=== PATIENT | female | born 1980 | race Caucasian/White ===

== ENCOUNTER 2019-01-22 09:05 | Inpatient (IN) | payer OTHER ==
[2019-01-22] MEDS ORDERED: PROMETHAZINE HCL 25 MG/1 ML VIAL IVPUSH PRN (09:56)
[2019-01-22] MEDS ORDERED: BUTORPHANOL TARTRATE 1 MG/ML VIAL IVPB PRN (09:56)
[2019-01-22] MEDS ORDERED: OXYTOCIN 30 UNITS in 0.9% NS 30 UNIT/500 ML INFUS.BAG IVPB SCH (10:00)
[2019-01-22] MEDS: ELECTROLYTE-148 SOLN 1,000 ML IV SCH ×3 (10:15→22:30)
[2019-01-22 10:50] VITALS: BMI 33.3
[2019-01-22 11:12] LABS: BASO % 0.3 % (0-2.0); EOS % 1.1 % (0-4.5); HEMATOCRIT 38.8 % (32.4-45.2); LYMPH % 26.2 % (8-40); MCH 29.9 pg (25.7-33.7); MCHC 33.4 g/dl (32.0-36.0); MEAN CELL VOLUME 89.3 fl (80-96); MEAN PLT VOLUME 11.3 fl (7.5-11.1); MONO % 7.2 % (3.8-10.2); NEUT % 65.2 % (42.8-82.8); PLATELET COUNT 167 K/MM3 (134-434); RBC 4.34 M/mm3 (3.60-5.2); RDW 13.2 % (11.6-15.6); WHITE BLOOD COUNT 9.3 K/mm3 (4.0-10.0)
[2019-01-22 11:25] LABS: INR 0.85 (0.83-1.09)
[2019-01-22 11:28] LABS: ACTIVATED PTT 31.3 SECONDS (25.2-36.5)
--- NOTE | 2019-01-22 11:36 | HP ---
Past Medical History - Admission Chief Complaint: IOL for oligo, BPP 6/8 History of Present Illness: 38yo @ 40.6wks here for IOL for oligo (VIOLETA 3.7) and BPP 6/8 on her postdates monitoring today. No VB/LOF. No ctx. +FM Preg c/b AMA, prior breech presentation with spontaneous conversion at 38wks History Source: Patient Limitations to Obtaining History: Language Barrier - Past Medical History MANAGER GOLF: No: Alzheimer's, CVA, Dementia, Migraine, Multiple Sclerosis, Peripheral Neuropathy, Parkinson's, Seizure, Syncope, TIA, Vertigo, Other Cardiovascular: No: AFIB, Aneurysm, Aortic Insufficiency, Aortic Stenosis, CAD, CHF, Deep Vein Thrombosis, HTN, Hyperlipdemia, [place], Mitral Insufficiency, Mitral Stenosis, Murmur, Pulmonary Hypertension, Other Pulmonary: No: Asthma, Bronchitis, Cancer, COPD, O2 Dependent, Pneumonia, Previously Intubated, Pulmonary Embolus, Pulmonary Fibrosis, Sleep Apnea, Other Gastrointestinal: No: Ascites, Cancer, Constipation, Crohn's Disease, Diverticulitis, Diverticulosis, Esophageal Varices, Gastritis, GERD, GI Bleed, Hemorrhoids, Hiatal Hernia, Inflamatory Bowel Disease, Irritable Bowel Disease, Pancreatitis, Peptic Ulcer Disease, Ulcerative Colitis, Other Hepatobiliary: No: Cirrhosis, Cholelithiasis, Cholecystitis, Choledocholithiasis , Hepatitis A, Hepatitis B, Hepatitis C, Other Renal/: No: Renal Failure, Renal Inusuff, BPH, Cancer, Hematuria, Hemodialysis , Neurogenic Bladder, Renal Calculi, UTI, Other Reproductive: No: Ectopic , Endometriosis, Fibroids, PID, Polycystic Ovary Syndrome, Postmenopausal, Other ...: 2 ...Para: 0 ...Term: 0 ...: 0 ...Spon : 1 ...Induced : 0 ...Multiple Gestation: 0 ...LMP: 04/11/18 ... Weeks Gestation by Dates: 40.6 ...EDC by Dates: 01/16/19 ...EDC by Sono: 01/16/19 Heme/Onc: Yes: Anemia Infectious Disease: No: AIDS, C-Diff, Herpes Zoster, HIV, MRSA, STD's, Tuberculosis, VREF, Other Psych: No: Addictions, Anxiety, Bipolar, Depression, Panic, Psychosis, Schizophrenia, Other Musculoskeletal: No: Bursitis, Chronic low back pain, Hemiparesis, Hemiplegia, Osteoarthritis, Paraplegia, Other Rheumatology: No: Fibromyalgia, Gout, Lupus, Rheumatoid Arthritis, Sarcoidosis, Vasculitis, Other ENT: No: Allergic Rhinitis, Sinusitis, Other Endocrine: No: [place]'s Disease, Br[place]'s Disease, Diabetes Insipidus, Diabetes Mellitus, Hyperparathyroidism, Hyperthyroidism, Hypothyroidism, Osteopenia, SIADH, Other - Past Surgical History Past Surgical History: Yes: None Hx Myomectomy: No Hx Transabdominal Cerclage: No - Smoking History Smoking history: Never smoked Have you smoked in the past 12 months: No - Alcohol/Substance Use Hx Alcohol Use: No - Social History Usual Living Arrangement: Yes: Alone ADL: Independent History of Recent Travel: No Home Medications - Allergies Allergies/Adverse Reactions: Allergies Allergy/AdvReac Type Severity Reaction Status Date / Time No Known Allergies Allergy Verified 01/22/19 10:15 - Home Medications Home Medications: Ambulatory Orders Vits96/Iron Fum/Folic [ Tablet] 1 each PO DAILY 01/22/19 Physical Exam - Maternity Vital Signs: Vital Signs Temperature 97.9 F 01/22/19 10:00 Pulse Rate 52 L 01/22/19 10:00 Respiratory Rate 18 01/22/19 10:00 Blood Pressure 134/82 01/22/19 10:00 O2 Sat by Pulse Oximetry (%) Constitutional: Yes: Well Nourished, No Distress, Calm Eyes: Yes: WNL, Conjunctiva Clear, EOM Intact HENT: Yes: WNL, Atraumatic, Normocephalic Neck: Yes: WNL, Supple, Trachea Midline Cardiovascular: Yes: WNL, Regular Rate and Rhythm Breast(s): Yes: WNL - Abdominal Exam/OB Number of Fetuses: Single Presentation: Vertex Contractions: No Heart Rate Location: LUQ Category: I Accelerations: None Decelerations: None - Vaginal Exam/OB Vaginal Bleediing: No Dilatation (cm): 1 Effacement (%): 0 Presentation: Vertex/Position Station: -3 - Physical Exam Edema: No - Labs Lab Results: CBC, BMP 01/22/19 10:19 Assessment/Plan 38yo @ 40.6wks here for IOL for oligo/BPP 12/09 Admit to L&D Cat I tracing Stephens bulb, pitocin GBS neg; AROM prn Anticipate JEFFREY Case MD
[2019-01-22 11:38] LABS: BLOOD UREA NITROGEN 9.1 mg/dL (7-18); CREATININE 0.5 mg/dL (0.55-1.3)
[2019-01-22 11:39] LABS: CALCIUM 8.5 mg/dL (8.5-10.1); POTASSIUM 3.7 mmol/L (3.5-5.1)
--- NOTE | 2019-01-22 12:06 | PN ---
Progress Note (short form) - Note Progress Note: Stephens bulb placed. 30cc SVE long/1-2/-3 M. MD Manpreet
--- NOTE | 2019-01-22 14:07 | PN ---
Progress Note, Labor Vaginal Exam #2 Labor Exam Date: 01/22/19 Labor Exam Time: 14:06 Heart Rate (range): Cat I Dilatation: 4 Effacement (%): 50 Amniotic Membrane Status: Ruptured Presentation: Vertex/Position Station: -3 Remarks: Stephens bulb out AROM, clear Cont pitocin Cat I Anticipate JEFFREY Case MD
[2019-01-22] MEDS ORDERED: BUTORPHANOL TARTRATE 2 MG/ML VIAL ONE (18:18)
[2019-01-22] MEDS ORDERED: PROMETHAZINE HCL 25 MG/1 ML VIAL ONE (18:18)
--- NOTE | 2019-01-22 18:21 | PN ---
Ante-Partal Exam - Subjective Subjective: Patient evaluated for pain Vital Signs: Vital Signs Temperature 98.3 F 01/22/19 18:00 Pulse Rate 52 L 01/22/19 18:00 Respiratory Rate 18 01/22/19 18:00 Blood Pressure 120/71 01/22/19 18:00 O2 Sat by Pulse Oximetry (%) Bleeding: No Headache: No Visual changes: No Right upper quadrant pain: No - Contractions Contractions: Yes Regularity: Regular Intensity: Mild/Mod Monitor Mode: External - Exam during Labor Heart Rate: 150 (reactive) Variability: Moderate Category: I Monitor Accelerations: Present Monitor Decelerations: None Exam: Vaginal Dilatation (cm): 4 Effacement (%): 50 Amniotic Fluid: Clear Presentation: Vertex Station: -3 - Assessment/Plan Assessment/Plan: 38 y/o @ 40.6wks, IOL due to oligohydramnios, reassuring status, desiring IV pain control, pitocin @ 2mU/min. -Increase pit -IV pain control -Re-evaluate appropriately.
--- NOTE | 2019-01-22 20:47 | PN ---
Ante-Partal Exam - Subjective Subjective: Patient complaints of pain Vital Signs: Vital Signs Temperature 98.3 F 01/22/19 18:00 Pulse Rate 52 L 01/22/19 18:00 Respiratory Rate 18 01/22/19 18:00 Blood Pressure 120/71 01/22/19 18:00 O2 Sat by Pulse Oximetry (%) Bleeding: No Headache: No Visual changes: No Right upper quadrant pain: No - Contractions Contractions: Yes Regularity: Regular Intensity: Moderate Monitor Mode: External - Exam during Labor Heart Rate: 150 (reactive) Variability: Moderate Category: I Monitor Accelerations: Present Monitor Decelerations: None Exam: Vaginal Dilatation (cm): 5 Effacement (%): 50 Amniotic Membrane Status: Ruptured Amniotic Fluid: Clear Presentation: Vertex (OP) Station: -3 - Assessment/Plan Assessment/Plan: 38y/o @ 40.6wks, AROM, IOL due to oligo, pitocin augmentation, requesting epidural, regular contractions -Epidural -Continue pitocin -Re-evaluate
[2019-01-22] MEDS ORDERED: FENTANYL/BUPIVACAINE/NS/PF - PCEA - 50 ML DISP.SYRIN EP ONE (21:07)
[2019-01-22] MEDS ORDERED: LIDO 2%/EPI 1:200000 PRESRVFRE (20 ML SDVIAL) ONE (21:44)
[2019-01-22] MEDS ORDERED: NALOXONE HCL 0.4 MG/ML VIAL IVPUSH PRN (22:05)
[2019-01-22] MEDS ORDERED: FENTANYL/BUPIVACAINE/NS/PF - PCEA - 50 ML DISP.SYRIN EP SCH (22:15)
--- NOTE | 2019-01-23 00:54 | PN ---
Ante-Partal Exam - Subjective Subjective: Patient evaluated for post epidural check Vital Signs: Vital Signs Temperature 99.2 F 01/23/19 00:00 Pulse Rate 82 01/23/19 00:30 Respiratory Rate 17 01/23/19 00:30 Blood Pressure 117/82 01/23/19 00:30 O2 Sat by Pulse Oximetry (%) 97 01/23/19 00:30 Bleeding: No Headache: No Visual changes: No Right upper quadrant pain: No - Contractions Contractions: Yes Regularity: Regular Intensity: Mild Monitor Mode: External - Exam during Labor Heart Rate: 150 (minimal to moderate variability) Variability: Minimal Monitor Accelerations: Absent Monitor Decelerations: Early Exam: Vaginal Dilatation (cm): 6 Effacement (%): 60 Amniotic Membrane Status: Ruptured Amniotic Fluid: Clear Presentation: Vertex (asynclitic) Station: -3 (internal digital rotation attempted) - Assessment/Plan Assessment/Plan: 38 y/o P1 @ 41.0wks, induction secondary to oligo, pitocin at 6mU/min, S/P AROM Continue pitocin augmentation
[2019-01-23] MEDS ORDERED: FENTANYL/BUPIVACAINE/NS/PF - PCEA - 50 ML DISP.SYRIN EP ONE (02:04)
[2019-01-23] MEDS ORDERED: CEFAZOLIN 2 GM/D5W 2 GM/50 ML ML IVPB ONE (03:19)
[2019-01-23] MEDS ORDERED: CITRIC ACID/SODIUM CITRATE 30 ML UNIT-DOSE CUP PO ONE (03:19)
[2019-01-23] MEDS ORDERED: LIDO 2%/EPI 1:200000 PRESRVFRE (20 ML SDVIAL) ONE (03:26)
--- NOTE | 2019-01-23 03:29 | PN ---
Ante-Partal Exam - Subjective Subjective: Patient evaluated for progression of labor Vital Signs: Vital Signs Temperature 99.2 F 01/23/19 02:00 Pulse Rate 87 01/23/19 02:30 Respiratory Rate 19 01/23/19 02:30 Blood Pressure 129/79 01/23/19 02:30 O2 Sat by Pulse Oximetry (%) 96 01/23/19 02:30 Bleeding: No Headache: No Visual changes: No Right upper quadrant pain: No - Contractions Contractions: Yes Regularity: Regular Intensity: Mod/Strong Monitor Mode: External - Exam during Labor Heart Rate: 160 (moderate) Variability: Minimal Category: II Monitor Accelerations: Absent Monitor Decelerations: None Exam: Vaginal Dilatation (cm): 6 Effacement (%): 60 Amniotic Membrane Status: Ruptured Presentation: Vertex Station: -3 (OP) - Assessment/Plan Assessment/Plan: 38 Y/O P1 @ 41.0wks, failed induction of labor, FHT cat II, adequate contractions without any cervical change, BTL consent signed but less than 30 days ago. Patient extensively counseled and agrees with CD. Riska nd complications of procedure explained -Informed consent -proceed with CD
[2019-01-23] MEDS ORDERED: OXYTOCIN 10 UNITS/ML VIAL ONE (04:00)
[2019-01-23] MEDS ORDERED: KETOROLAC TROMETHAMINE 30 MG/1 ML VIAL ONE (04:04)
[2019-01-23] MEDS ORDERED: ceFAZolin SODIUM 1 GM VIAL ONE (04:05)
[2019-01-23] MEDS ORDERED: ePHEDrine SULFATE 50 MG/1 ML AMPULE ONE (04:07)
[2019-01-23] MEDS ORDERED: DEXAMETHASONE SOD PHOSPHATE 4 MG/1 ML VIAL ONE (04:30)
--- NOTE | 2019-01-23 05:08 | OP ---
Operative Note - Note: Operative Date: 01/23/19 (uncomplicated # [id number]) Pre-Operative Diagnosis: failed induction Operation: PLTCS Findings: see dictation Implants: none Post-Operative Diagnosis: Same as Pre-op Surgeon: Quang Yeboah Anesthesia: Spinal Specimens Removed: placenta Estimated Blood Loss (mls): 700 Fluid Volume Replaced (mls): 1,700 Operative Report Dictated: Yes
[2019-01-23] MEDS ORDERED: oxyCODONE HCL 5 MG TABLET PO PRN (05:14)
[2019-01-23] MEDS ORDERED: OXYTOCIN 20 UNITS in 0.9% NS 20 UNIT/1,000 ML INFUS.BAG IV SCH (05:15)
[2019-01-23] MEDS ORDERED: OXYTOCIN 20 UNITS in 0.9% NS 20 UNIT/1,000 ML INFUS.BAG IV ONE (06:15)
--- NOTE | 2019-01-23 09:19 | PN ---
Progress Note, Physician Chief Complaint: s/p c section under spinal anesthesia History of Present Illness: post op day one with duramorph for post op pain control - Current Medication List Current Medications: Active Medications Acetaminophen (Tylenol -) 650 mg PO Q4H PRN PRN Reason: PAIN LEVEL 4 - 6 Bisacodyl (Dulcolax Suppository -) 10 mg RC PRN PRN PRN Reason: CONSTIPATION Diphtheria/Tetanus/Acell Pertussis (Boostrix -) 0.5 ml IM .ONCE ONE Stop: 01/24/19 10:01 Oxytocin/Sodium Chloride (Normal Saline+20 Units Oxytocin -) 20 unit in 1,000 mls @ 125 mls/hr IV ASDIR PEGGY Last Admin: 01/23/19 06:15 Dose: 125 mls/hr Ibuprofen (Motrin -) 600 mg PO Q4H PRN PRN Reason: PAIN LEVEL 1 - 3 Oxycodone HCl (Roxicodone -) 5 mg PO Q4H PRN PRN Reason: PAIN LEVEL 6-10 Simethicone (Mylicon -) 80 mg PO Q4H PRN PRN Reason: GAS - Objective Vital Signs: Vital Signs Temperature 99.1 F 01/23/19 08:00 Pulse Rate 73 01/23/19 08:00 Respiratory Rate 20 01/23/19 09:00 Blood Pressure 134/73 01/23/19 08:00 O2 Sat by Pulse Oximetry (%) 98 01/23/19 08:00 Constitutional: Yes: Well Nourished Cardiovascular: Yes: WNL Respiratory: Yes: WNL Gastrointestinal: Yes: WNL Labs: CBC, BMP 01/22/19 10:19 01/22/19 10:19 INR, PTT INR 0.85 (0.83-1.09) 01/22/19 10:19 Assessment/Plan No adverse anesthetic complications, pain controlled, no further intervention from the department of anesthesia
--- NOTE | 2019-01-23 10:56 | OP ---
DATE OF OPERATION: 01/23/2019 DICTATING/ATTENDING: Yumiko Broussard MD PREOPERATIVE DIAGNOSIS: A 38-year-old 2 para 1 at 41 weeks of gestation , induction of labor secondary to oligohydramnios, failing induction of labor, arrest of dilatation, heart rate category 2. POSTOPERATIVE DIAGNOSIS: A 38-year-old 2 para 1 at 41 weeks of gestation, induction of labor secondary to oligohydramnios, failing induction of labor, arrest of dilatation, heart rate category 2. PROCEDURE: Primary low transverse section. SURGEON: Yumiko Broussard MD MARKETING ADMIN: GANGA Iqbal ANESTHESIA: Spinal. ESTIMATED BLOOD LOSS: 700. INTRAVENOUS FLUIDS: Crystalloid, 1700. URINE: Clear. COMPLICATIONS: None. FINDINGS: Normal anterior abdominal wall anatomy with moderate amount of subcutaneous tissue. Intraoperative findings were consistent with normal anatomy. Lower uterine segment was slightly effaced, in cephalic presentation and direct OP. No nuchal cord. Live viable female . Uterus, bilateral tubes and ovaries were consistent with normal anatomy. Rectus muscles-fascial interface, bladder dome were intact and dry. DESCRIPTION OF PROCEDURE: The patient was taken to the operating room where spinal anesthesia was found to be adequate. She was then prepped and draped in the normal sterile fashion. A urinary Stephens catheter was placed atraumatically. Appropriate time-out took place. A Pfannenstiel skin incision was made with the scalpel and carried to the underlying fascia with the Bovie. The fascia was incised in the midline and incision extended laterally with sharp dissection. The underlying rectus muscles were dissected off sharply and bluntly. Rectus muscles were elevated with Allis and incised and in the midline with sharp dissection. Upon entry into the peritoneal cavity revealed no visceral adhesions at the point of entry. The peritoneal excision was extended laterally with blunt and sharp dissection. Bladder blade was placed, and the lower uterine segment was noted to be slightly effaced. Lower uterine segment transverse incision was made with the scalpel, extended laterally with blunt dissection. The was delivered through a surgical incision with mild fundal pressure. No nuchal cord present. Shoulders and rest of the body were delivered without difficulty. Umbilical cord was clamped after delay, and was handed off to the waiting NICU staff. Samples for gases and blood were obtained from the cord. The placenta was delivered manually and intact. The uterus was exteriorized through the surgical incision and the intrauterine cavity was cleared of all clots and debris. The lower uterine segment incision was reapproximated with 0 Vicryl running locked sutures. Excellent structural reapproximation and hemostasis was achieved. Uterus was internalized with the pelvic cavity and secondary inspection of the incision revealed excellent hemostasis. Gutters were cleared of all clots and debris. Rectus muscles-fascial interface, and bladder dome were reexamined and noted as previously mentioned. The fascial incision was reapproximated with 0 Vicryl running locked suture. Excellent structural reapproximation achieved and confirmed by digital palpation by the surgeon. Subcutaneous tissues were copiously irrigated. Bleeders neutralized with Bovie cautery. Subcutaneous tissues were reapproximated with 2 -0 chromic suture. Skin incision was reapproximated with 3-0 subcuticular Vicryl suture. Excellent hemostasis and reapproximation achieved. Patient tolerated the procedure well. Instrument count was reported as correct x2 by the surgical staff. YUMIKO BROUSSARD MD [id number] MTDD
[2019-01-23] MEDS: SIMETHICONE 80 MG TAB.CHEW (FP) PO PRN (20:41)
[2019-01-23] MEDS: ACETAMINOPHEN 325 MG TABLET (FP) PO PRN (20:41)
[2019-01-23] MEDS: IBUPROFEN 600 MG TABLET (FP) PO PRN (20:41)
[2019-01-24] MEDS: IBUPROFEN 600 MG TABLET (FP) PO PRN ×5 (00:42→19:56)
[2019-01-24] MEDS: SIMETHICONE 80 MG TAB.CHEW (FP) PO PRN ×5 (00:42→19:56)
[2019-01-24] MEDS: ACETAMINOPHEN 325 MG TABLET (FP) PO PRN ×5 (00:43→19:56)
[2019-01-24] MEDS ORDERED: BISACODYL 10 MG SUPP.RECT RC PRN (05:11)
[2019-01-24 09:45] LABS: BASO % 0.2 % (0-2.0); EOS % 0.6 % (0-4.5); HEMATOCRIT 27.4 % (32.4-45.2); HEMOGLOBIN 9.3 GM/dL (10.7-15.3); LYMPH % 20.4 % (8-40); MCH 30.1 pg (25.7-33.7); MEAN CELL VOLUME 88.4 fl (80-96); MEAN PLT VOLUME 11.1 fl (7.5-11.1); MONO % 5.6 % (3.8-10.2); NEUT % 73.2 % (42.8-82.8); PLATELET COUNT 135 K/MM3 (134-434); RDW 13.5 % (11.6-15.6); WHITE BLOOD COUNT 13.8 K/mm3 (4.0-10.0)
[2019-01-24] MEDS ORDERED: DIPHTH,PERTUSS(ACELL),TET 0.5 ML DISP.SYRIN IM ONE (10:00)
--- NOTE | 2019-01-24 14:18 | PN ---
Post Progress Note - Subjective Subjective: Ambulating, breast feeding, lochia decreased, tolerating PO, voiding Post Day: 1 Type of Delivery: Primary C/S Vital Signs: Vital Signs Temperature 98 F 01/24/19 07:20 Pulse Rate 63 01/24/19 07:20 Respiratory Rate 18 01/24/19 07:20 Blood Pressure 111/72 01/24/19 07:20 O2 Sat by Pulse Oximetry (%) 98 01/23/19 08:00 Breast Exam: Yes: Other (deferred) Uterus: Yes: Fundus Firm Incision: Yes: Sutures intact Abdomen/GI: Yes: Abdomen soft Lochia, amount: Small Extremities: Yes: Calves non-tender Activity: Ambulating - Labs Labs: CBC WBC 13.8 K/mm3 (4.0-10.0) H 01/24/19 07:41 RBC 3.10 M/mm3 (3.60-5.2) L 01/24/19 07:41 Hgb 9.3 GM/dL (10.7-15.3) L 01/24/19 07:41 Hct 27.4 % (32.4-45.2) L D 01/24/19 07:41 MCV 88.4 fl (80-96) 01/24/19 07:41 MCH 30.1 pg (25.7-33.7) 01/24/19 07:41 MCHC 34.0 g/dl (32.0-36.0) 01/24/19 07:41 RDW 13.5 % (11.6-15.6) 01/24/19 07:41 Plt Count 135 K/MM3 (134-434) 01/24/19 07:41 MPV 11.1 fl (7.5-11.1) 01/24/19 07:41 Absolute Neuts (auto) 10.1 K/mm3 (1.5-8.0) H 01/24/19 07:41 Neutrophils % 73.2 % (42.8-82.8) 01/24/19 07:41 Lymphocytes % 20.4 % (8-40) D 01/24/19 07:41 Monocytes % 5.6 % (3.8-10.2) 01/24/19 07:41 Eosinophils % 0.6 % (0-4.5) 01/24/19 07:41 Basophils % 0.2 % (0-2.0) 01/24/19 07:41 Nucleated RBC % 0 % (0-0) 01/24/19 07:41 Problem List - Problems (1) delivery delivered Code(s): O82 - ENCOUNTER FOR DELIVERY WITHOUT INDICATION Assessment/Plan POD # 1 in stable condition, PP/post-op precautions discussed -Encouraged ambulation and breast feeding -Continue PP/post-op care
[2019-01-25] MEDS: ACETAMINOPHEN 325 MG TABLET (FP) PO PRN ×4 (04:06→20:50)
[2019-01-25] MEDS: IBUPROFEN 600 MG TABLET (FP) PO PRN ×4 (04:06→20:50)
[2019-01-25] MEDS: SIMETHICONE 80 MG TAB.CHEW (FP) PO PRN ×4 (04:06→20:50)
--- NOTE | 2019-01-25 06:03 | PN ---
Post Progress Note - Subjective Subjective: Pain controlled. Lochia decreasing. No fevers/chills. + Post Day: 2 Type of Delivery: Primary C/S Vital Signs: Vital Signs Temperature 97.8 F 01/24/19 22:00 Pulse Rate 81 01/24/19 22:00 Respiratory Rate 18 01/24/19 22:00 Blood Pressure 136/86 01/24/19 22:00 O2 Sat by Pulse Oximetry (%) 98 01/23/19 08:00 Uterus: Yes: Fundus below umbilicus Incision: Yes: Dressing dry and intact, Sutures intact Abdomen/GI: Yes: Abdomen soft, Passing flatus, Tolerating PO Lochia: Yes: Rubra Lochia, amount: Small Extremities: Yes: Calves non-tender Activity: Ambulating - Labs Labs: CBC WBC 13.8 K/mm3 (4.0-10.0) H 01/24/19 07:41 RBC 3.10 M/mm3 (3.60-5.2) L 01/24/19 07:41 Hgb 9.3 GM/dL (10.7-15.3) L 01/24/19 07:41 Hct 27.4 % (32.4-45.2) L D 01/24/19 07:41 MCV 88.4 fl (80-96) 01/24/19 07:41 MCH 30.1 pg (25.7-33.7) 01/24/19 07:41 MCHC 34.0 g/dl (32.0-36.0) 01/24/19 07:41 RDW 13.5 % (11.6-15.6) 01/24/19 07:41 Plt Count 135 K/MM3 (134-434) 01/24/19 07:41 MPV 11.1 fl (7.5-11.1) 01/24/19 07:41 Absolute Neuts (auto) 10.1 K/mm3 (1.5-8.0) H 01/24/19 07:41 Neutrophils % 73.2 % (42.8-82.8) 01/24/19 07:41 Lymphocytes % 20.4 % (8-40) D 01/24/19 07:41 Monocytes % 5.6 % (3.8-10.2) 01/24/19 07:41 Eosinophils % 0.6 % (0-4.5) 01/24/19 07:41 Basophils % 0.2 % (0-2.0) 01/24/19 07:41 Nucleated RBC % 0 % (0-0) 01/24/19 07:41 Assessment/Plan 38yo s/p PLTCS, POD#2 Routine PP care PO pain control OOB, ambulate D/C to home tomorrow Daniel Case MD
[2019-01-26] MEDS: SIMETHICONE 80 MG TAB.CHEW (FP) PO PRN ×3 (00:30→10:06)
[2019-01-26] MEDS: IBUPROFEN 600 MG TABLET (FP) PO PRN ×3 (00:30→10:04)
[2019-01-26] MEDS: ACETAMINOPHEN 325 MG TABLET (FP) PO PRN ×3 (00:30→10:05)
--- NOTE | 2019-01-26 07:13 | DS ---
Physical Exam-ANIMAL ATTENDANTS AND TRAINERS Vital Signs: Vital Signs Temperature 97.6 F 01/25/19 21:13 Pulse Rate 64 01/25/19 21:13 Respiratory Rate 20 01/25/19 21:13 Blood Pressure 126/84 01/25/19 21:13 O2 Sat by Pulse Oximetry (%) 98 01/23/19 08:00 Constitutional: Yes: Well Nourished, No Distress, Calm Eyes: Yes: WNL, Conjunctiva Clear, EOM Intact HENT: Yes: WNL, Atraumatic, Normocephalic Neck: Yes: WNL, Supple, Trachea Midline Cardiovascular: Yes: WNL, Regular Rate and Rhythm Respiratory: Yes: WNL, Regular, CTA Bilaterally Gastrointestinal: Yes: WNL ...Rectal Exam: Yes: WNL Renal/: Yes: WNL ....Post : Yes: Uterus firm, Uterus non-tender, Slight lochia rubra Breast(s): Yes: WNL Musculoskeletal: Yes: WNL Extremities: Yes: WNL Edema: Yes Edema: LLE: Trace, RLE: Trace Integumentary: Yes: WNL Neurological: Yes: WNL, Alert, Oriented ...Motor Strength: WNL Psychiatric: Yes: WNL, Alert, Oriented Labs: CBC, BMP 01/24/19 07:41 01/22/19 10:19 Delivery - Delivery Section: Repeat, Low Flap Transverse Type of Anesthesia: Epidural Episiotomy/Laceration: None EBL (cc): 700 Delivery, Single - Stages of Labor Date 1st Stage Initiatied: 01/22/19 Time 1st Stage Initiated: 11:00 Date of Delivery: 01/23/19 Time of Delivery: 04:18 Time Placenta Delivered: 04:19 Placenta: Yes: Expressed - Condition of Infant Hazardous Substances Scientist/Foot Cutter Present: Yes Name: Krys Botello Gender: Female Weight: 6 lb 12 oz Position: OP Total Hours ROM (Hrs/Mins): 14 hours 26 minutes - 1 Minute Total Score: 9 5 Minutes Total Score: 9 - Dema Feeding Plan Initial Plan: Elected not to breastfeed exclusively throughout hospitalization Discharge Summary Reason For Visit: INDUCTION OF LABOR Current Active Problems delivery delivered (Acute) Procedures: Principal: no complication Hospital Course: repeat LST c/s Condition: Stable - Instructions Diet, Activity, Other Instructions: Regular Diet Follow up in 4-6 weeks for a visit Referrals: Marta Case MD [Staff Physician] - Disposition: HOME - Home Medications Comprehensive Discharge Medication List: Ambulatory Orders Vits96/Iron Fum/Folic [ Tablet] 1 each PO DAILY 01/22/19 Ibuprofen 600 mg PO Q6H PRN #30 tablet MDD 5 01/23/19 Oxycodone HCl/Acetaminophen [Percocet 5-325 mg Tablet -] 1 tab PO Q6H PRN #20 tab MDD 5 01/23/19
[2019-01-26 08:04] LABS: BASO % 0.2 % (0-2.0); HEMATOCRIT 26.8 % (32.4-45.2); HEMOGLOBIN 9.2 GM/dL (10.7-15.3); LYMPH % 26.8 % (8-40); MCH 30.3 pg (25.7-33.7); MCHC 34.3 g/dl (32.0-36.0); MEAN CELL VOLUME 88.4 fl (80-96); MEAN PLT VOLUME 9.8 fl (7.5-11.1); MONO % 6.6 % (3.8-10.2); NEUT % 62.4 % (42.8-82.8); PLATELET COUNT 179 K/MM3 (134-434); RBC 3.03 M/mm3 (3.60-5.2); RDW 13.5 % (11.6-15.6); WHITE BLOOD COUNT 7.4 K/mm3 (4.0-10.0)
[2019-01-26 12:00] VITALS: BP 130/77; PULSE 65; TEMP 98
--- NOTE | 2019-01-31 19:27 | PATH ---
Surgical Pathology Report Patient Name: ZENAIDA MURRAY Med. Rec. #: [id number] /Age/Gender: 1980 (Age: 38) / F Account: [id number] Location: [facility] OBS/STRIP CATCHER Taken: 01/23/2019 Received: 01/23/2019 Reported: 01/31/2019 Physicians: Marta Case Specimen(s) Received PLACENTA Clinical History , , AMA, oligohydramnios, post dates Final Diagnosis PLACENTA, SECTION: 327 G THIRD TRIMESTER PLACENTA WITH TRIVASCULAR UMBILICAL CORD AND UNREMARKABLE PLACENTAL MEMBRANES. Electronically Signed Zenaida Weiner M.D. Gross Description The specimen is received fresh labeled placenta and is a 327 gram, 13.0 x 13.0 x 2.9 cm. placenta with attached membranes and umbilical cord. The attached membranes are frank, translucent with focal opacities and insert marginally. The umbilical cord measures 10 cm. in length and averages 1 cm. in diameter. The cord inserts eccentrically, 3.3 cm. to the nearest margin. No true knots or strictures are identified. Cut surface of the umbilical cord reveals 3 vessels. The surface is lópez-blue with minimal fibrin deposition and appropriate caliber vessels. The maternal surface is red-brown and intact. Sectioning reveals red-brown, spongy parenchyma. No lesions are identified. Real Estate Administrator sections are submitted in three cassettes as follows: 1- membrane rolls and umbilical cord; 2-3- full thickness sections of placenta. /01/26/2019 saudi01/26/2019
== END 2019-01-26 14:50 | disposition home or self-care (01) | DRG 540 ==
LOC: JDEL 09:05 → JLDR 09:45 → J3W 01-23 08:00
PROVIDERS: ADMIT Obstetrics & Gynecology; ATTEND Obstetrics & Gynecology
PROC: 10D00Z1 Extraction of Products of Conception, Low, Open Approach (ICD-10-PCS; principal; 2019-01-23)
DX: O48.0 Post-term pregnancy (principal); O41.03X0 Oligohydramnios, third trimester, not applicable or unspecified; O62.0 Primary inadequate contractions; O77.8 Labor and delivery complicated by other evidence of fetal stress; O61.8 Other failed induction of labor; Z3A.41 41 weeks gestation of pregnancy; Z37.0 Single live birth
CPT/HCPCS: 36415; 36600; 80048; 82803; 85025; 85610; 85730; 86593; 86850; 86900; 86901; 87389; 88307-TC

== ENCOUNTER 2022-10-29 18:23 | Emergency (ER) | payer OTHER ==
[2022-10-29 18:33] VITALS: BMI 32.9
[2022-10-29] MEDS ORDERED: ACETAMINOPHEN 1000 MG/100 ML BAG IVPB ONE (19:20)
[2022-10-29] MEDS ORDERED: SODIUM CHLORIDE 0.9% 500 ML INFUS.BAG IV ONE (19:20)
[2022-10-29] MEDS ORDERED: ONDANSETRON 4 MG/2 ML VIAL IVPUSH ONE ×2 (19:21→22:55)
[2022-10-29] MEDS ORDERED: ONDANSETRON 4 MG/2 ML VIAL ONE ×2 (19:47→23:28)
[2022-10-29] MEDS ORDERED: ACETAMINOPHEN INJECTION 100 ML IVPB ONE (19:47)
[2022-10-29 20:51] LABS: BASO % 0.4 % (0-2.0); EOS % 1.6 % (0-4.5); HEMATOCRIT 36.7 % (32.4-45.2); HEMOGLOBIN 12.5 GM/dL (10.7-15.3); LYMPH % 18.8 % (8-40); MCHC 34.1 g/dl (32.0-36.0); MEAN CELL VOLUME 84.9 fl (80-96); MEAN PLT VOLUME 9.5 fl (7.5-11.1); NEUT % 74.2 % (42.8-82.8); PLATELET COUNT 232 10^3/uL (134-434); RBC 4.33 M/mm3 (3.60-5.2); RDW 13.9 % (11.6-15.6); WHITE BLOOD COUNT 11.8 K/mm3 (4.0-10.0)
[2022-10-29 20:58] LABS: INR 1.03 (0.83-1.09); PROTHROMBIN TIME (PATIENT) 11.9 SEC (9.7-13.0)
[2022-10-29 21:01] LABS: ACTIVATED PTT 29.9 SECONDS (25.2-36.5)
[2022-10-29 21:06] LABS: ALBUMIN 3.8 g/dl (3.4-5.0); BLOOD UREA NITROGEN 14.4 mg/dL (7-18); CALCIUM 8.5 mg/dL (8.5-10.1); MAGNESIUM 1.8 mg/dL (1.8-2.4)
[2022-10-29 21:09] LABS: CREATININE 0.7 mg/dL (0.55-1.3)
[2022-10-29 21:11] LABS: BILIRUBIN,TOTAL 0.4 mg/dL (0.2-1); TOT PROT 7.6 g/dl (6.4-8.2)
[2022-10-29 21:16] LABS: EPI CELLS >36 /uL (0-25.1); HYALINE CASTS 5 /uL (0-3.1); URINE APPEARANCE CLOUDY; URINE BACTERIA 2031 /uL (0-1359); URINE BILIRUBIN NEGATIVE (NEGATIVE); URINE COLOR YELLOW; URINE GLUCOSE (UA) NEGATIVE (NEGATIVE); URINE KETONE 2+ (NEGATIVE); URINE LEUK ESTERASE 2+ (NEGATIVE); URINE NITRITE NEGATIVE (NEGATIVE); URINE PROTEIN TRACE (NEGATIVE); URINE WBC 141 /uL (0-25.8)
[2022-10-29 22:41] LABS: URINE RBC 113.2 /uL (0-23.9)
[2022-10-29] MEDS ORDERED: FAMOTIDINE 20 MG/50 ML IVPB 20 MG/50 ML MG IVPB ONE ×2 (22:55→23:28)
[2022-10-29] MEDS ORDERED: MAG HYDROX/AL HYDROX/SIMETH 30 ML UNIT-DOSE CUP PO ONE (22:55)
[2022-10-29] MEDS ORDERED: MAG HYDROX/AL HYDROX/SIMETH 30 ML UNIT-DOSE CUP ONE (23:28)
[2022-10-30] MEDS ORDERED: LACTULOSE 20 GM/30 ML UDC (FOR ORAL USE ONLY) ONE (01:33)
[2022-10-30] MEDS ORDERED: WATER IVPB ONE (02:17)
[2022-10-30] MEDS ORDERED: DEXTROSE 5% IVPB ONE (02:17)
[2022-10-30] MEDS ORDERED: CEFTRIAXONE IVPB ONE (02:17)
[2022-10-30] MEDS ORDERED: CEFTRIAXONE 2 GM in DEXTROSE 5%-WATER 100 ML IVPB ONE (02:45)
[2022-10-30 02:47] VITALS: BP 115/73; PULSE 68; RESP 16; TEMP 98.6
[2022-10-30] MEDS ORDERED: CEFTRIAXONE 2 GM/100 ML BAG IVPB ONE (03:48)
== END 2022-10-30 06:04 | disposition left against medical advice (07) ==
LOC: JER 18:23
PROC: 3E033GC Introduction of Other Therapeutic Substance into Peripheral Vein, Percutaneous Approach (ICD-10-PCS; principal; 2022-10-29)
DX: K80.20 Calculus of gallbladder without cholecystitis without obstruction (principal); N30.90 Cystitis, unspecified without hematuria
CPT/HCPCS: 0241U-QW; 36415; 74177-TC; 76705-TC; 80053; 81003; 83690; 83735; 84703; 85025; 85610; 85730; 86850; 86900; 86901; 87086; 99285-25; Q9967

== ENCOUNTER 2023-02-04 01:23 | Inpatient (IN) | payer OTHER ==
[2023-02-04 01:42] VITALS: BMI 30.5
[2023-02-04] MEDS ORDERED: ONDANSETRON 4 MG/2 ML VIAL IVPUSH ONE (01:59)
[2023-02-04] MEDS ORDERED: SODIUM CHLORIDE 0.9% 500 ML INFUS.BAG IV ONE (01:59)
[2023-02-04] MEDS ORDERED: ACETAMINOPHEN 1000 MG/100 ML BAG IVPB ONE (01:59)
[2023-02-04] MEDS ORDERED: ONDANSETRON 4 MG/2 ML VIAL ONE ×2 (02:03→02:27)
[2023-02-04] MEDS ORDERED: ACETAMINOPHEN INJECTION 100 ML IVPB ONE (02:03)
[2023-02-04 02:50] LABS: BASO % 0.3 % (0-2.0); EOS % 1.1 % (0-4.5); HEMOGLOBIN 13.3 GM/dL (10.7-15.3); LYMPH % 20.5 % (8-40); MCH 28.5 pg (25.7-33.7); MCHC 34.1 g/dl (32.0-36.0); MEAN CELL VOLUME 83.6 fl (80-96); MONO % 6.1 % (3.8-10.2); PLATELET COUNT 256 10^3/uL (134-434); RBC 4.66 M/mm3 (3.60-5.2); RDW 13.2 % (11.6-15.6); WHITE BLOOD COUNT 11.3 K/mm3 (4.0-10.0)
[2023-02-04 03:07] LABS: INR 0.91 (0.83-1.09); PROTHROMBIN TIME (PATIENT) 10.6 SEC (9.7-13.0)
[2023-02-04 03:10] LABS: ACTIVATED PTT 31.8 SECONDS (25.2-36.5); POTASSIUM 3.9 mmol/L (3.5-5.1)
[2023-02-04 03:12] LABS: CALCIUM 9.1 mg/dL (8.5-10.1)
[2023-02-04 03:13] LABS: ALBUMIN 3.7 g/dl (3.4-5.0); BLOOD UREA NITROGEN 8.7 mg/dL (7-18)
[2023-02-04 03:16] LABS: CREATININE 0.7 mg/dL (0.55-1.3)
[2023-02-04 03:17] LABS: BILIRUBIN,TOTAL 0.1 mg/dL (0.2-1); TOT PROT 7.2 g/dl (6.4-8.2)
[2023-02-04] MEDS ORDERED: morphine CARPU-JECT 4 MG/1 ML DISP.SYRIN IVPUSH ONE (03:54)
[2023-02-04] MEDS ORDERED: morphine SULFATE 4 MG/ML VIAL ONE (04:00)
[2023-02-04 04:11] LABS: PH,URINE 7.5 (5.0-8.0); URINE APPEARANCE CLEAR; URINE BILIRUBIN NEGATIVE (NEGATIVE); URINE COLOR YELLOW; URINE GLUCOSE (UA) NEGATIVE (NEGATIVE); URINE KETONE NEGATIVE (NEGATIVE); URINE LEUK ESTERASE NEGATIVE (NEGATIVE); URINE NITRITE NEGATIVE (NEGATIVE); URINE PROTEIN NEGATIVE (NEGATIVE); URINE UROBILINOGEN 0.2 mg/dL (0.2-1.0)
[2023-02-04] MEDS ORDERED: PIPERACILLIN/TAZOB 4.5 GM 4.5 GM in DEXTROSE 5%-WATER 100 ML IVPB ONE (06:00)
[2023-02-04] MEDS ORDERED: PIPERACILLIN/TAZOB 4.5 GM 4.5 GM/100 ML BAG IVPB ONE (06:07)
[2023-02-04] MEDS ORDERED: ACETAMINOPHEN 1000 MG/100 ML BAG IVPB PRN (09:36)
[2023-02-04] MEDS ORDERED: LIDOCAINE HCL 1%, 10 MG/ML (20ML VIAL) NR ONE (18:52)
[2023-02-04] MEDS ORDERED: BUPIVACAINE HCL/PF 0.5% (5MG/ML) 10 ML VIAL IJ ONE (18:52)
[2023-02-04] MEDS: LACTATED RINGERS SOLUTION 1000 ML INFUS.BAG IV SCH (21:41)
[2023-02-05] MEDS: LACTATED RINGERS SOLUTION 1000 ML INFUS.BAG IV SCH (07:32)
[2023-02-05 09:02] LABS: BASO % 0.3 % (0-2.0); EOS % 2.2 % (0-4.5); HEMATOCRIT 39.4 % (32.4-45.2); HEMOGLOBIN 13.2 GM/dL (10.7-15.3); LYMPH % 39.2 % (8-40); MCH 28.1 pg (25.7-33.7); MCHC 33.4 g/dl (32.0-36.0); MEAN PLT VOLUME 9.2 fl (7.5-11.1); NEUT % 50.3 % (42.8-82.8); PLATELET COUNT 242 10^3/uL (134-434); RBC 4.69 M/mm3 (3.60-5.2); RDW 13.2 % (11.6-15.6); WHITE BLOOD COUNT 7.5 K/mm3 (4.0-10.0)
[2023-02-05 09:03] LABS: POTASSIUM 3.7 mmol/L (3.5-5.1)
[2023-02-05 09:06] LABS: CALCIUM 8.7 mg/dL (8.5-10.1)
[2023-02-05 09:07] LABS: ALBUMIN 3.2 g/dl (3.4-5.0); BLOOD UREA NITROGEN 10.2 mg/dL (7-18)
[2023-02-05 09:10] LABS: CREATININE 0.7 mg/dL (0.55-1.3)
[2023-02-05 09:12] LABS: BILIRUBIN,TOTAL 0.4 mg/dL (0.2-1); TOT PROT 6.6 g/dl (6.4-8.2)
[2023-02-05] MEDS ORDERED: BUPIVACAINE HCL/PF 0.5% (5MG/ML) 10 ML VIAL ONE (10:40)
[2023-02-05] MEDS ORDERED: PROPOFOL 20 ML ONE ×2 (10:54→12:28)
[2023-02-05] MEDS ORDERED: MIDAZOLAM HCL 2 MG/2 ML SINGLE DOSE VIAL ONE (10:54)
[2023-02-05] MEDS ORDERED: ROCURONIUM BROMIDE 50 MG/5 ML SYRINGE ONE ×2 (10:54→11:49)
[2023-02-05] MEDS ORDERED: ceFAZolin SODIUM 1 GM VIAL IVPB ONE (11:03)
[2023-02-05] MEDS ORDERED: LIDOCAINE 1% P/F 10 MG/ML VIAL INF ONE (11:20)
[2023-02-05] MEDS ORDERED: BUPIVACAINE HCL/PF 0.5% (5 MG/ML) 30 ML VIAL IJ ONE (11:20)
[2023-02-05] MEDS ORDERED: NEOSTIGMINE METHYLSULFATE 0.5 MG/1 ML - 10 ML MDV ONE (12:08)
[2023-02-05] MEDS ORDERED: ACETAMINOPHEN INJECTION 100 ML IVPB ONE (12:37)
[2023-02-05] MEDS ORDERED: oxyCODONE HCL 5 MG TABLET PO PRN (13:02)
[2023-02-05] MEDS ORDERED: IBUPROFEN 600 MG TABLET (FP) PO PRN (13:02)
[2023-02-05] MEDS ORDERED: LACTATED RINGERS SOLUTION 1000 ML INFUS.BAG IV SCH (13:02)
[2023-02-05] MEDS ORDERED: LACTATED RINGERS SOLUTION 1,000 ML IV SCH ×2 (13:30)
[2023-02-05] MEDS: oxyCODONE HCL 5 MG TABLET PO PRN (16:47)
[2023-02-05] MEDS: ACETAMINOPHEN 500 MG TABLET (FP) PO SCH (21:26)
[2023-02-05 23:17] VITALS: RESP 18
[2023-02-06] MEDS: ACETAMINOPHEN 500 MG TABLET (FP) PO SCH ×3 (02:20→18:04)
[2023-02-06] MEDS ORDERED: LACTATED RINGERS SOLUTION 1,000 ML IV SCH (09:38)
[2023-02-06 10:31] LABS: BASO % 0.3 % (0-2.0); EOS % 0.2 % (0-4.5); HEMATOCRIT 35.2 % (32.4-45.2); HEMOGLOBIN 11.8 GM/dL (10.7-15.3); LYMPH % 22.6 % (8-40); MCH 28.6 pg (25.7-33.7); MCHC 33.6 g/dl (32.0-36.0); MEAN CELL VOLUME 84.9 fl (80-96); MEAN PLT VOLUME 9.3 fl (7.5-11.1); NEUT % 70.9 % (42.8-82.8); PLATELET COUNT 224 10^3/uL (134-434); RBC 4.15 M/mm3 (3.60-5.2); RDW 13.1 % (11.6-15.6)
[2023-02-06 10:46] LABS: POTASSIUM 3.7 mmol/L (3.5-5.1)
[2023-02-06 10:51] LABS: CALCIUM 8.3 mg/dL (8.5-10.1)
[2023-02-06 10:52] LABS: ALBUMIN 2.8 g/dl (3.4-5.0); BLOOD UREA NITROGEN 9.7 mg/dL (7-18)
[2023-02-06 10:56] LABS: BILIRUBIN,TOTAL 0.4 mg/dL (0.2-1)
[2023-02-06 10:59] LABS: CREATININE 0.6 mg/dL (0.55-1.3)
[2023-02-07] MEDS: oxyCODONE HCL 5 MG TABLET PO PRN ×2 (00:17→07:43)
[2023-02-07 09:08] VITALS: BP 135/76; PULSE 64; TEMP 98.4
[2023-02-09] MEDS ORDERED: CALAMINE 8% TOPICAL LOTION 177 ML BOTTLE TP PRN (04:41)
== END 2023-02-07 13:40 | disposition home or self-care (01) | DRG 263 ==
LOC: JER 01:23 → JERBED 05:57 → J8W 20:50
PROVIDERS: ADMIT Internal Medicine; ATTEND Internal Medicine
PROC: 0FT44ZZ Resection of Gallbladder, Percutaneous Endoscopic Approach (ICD-10-PCS; principal; 2023-02-05 10:00)
DX: K80.00 Calculus of gallbladder with acute cholecystitis without obstruction (principal); E66.9 Obesity, unspecified; Z68.30 Body mass index [BMI] 30.0-30.9, adult
CPT/HCPCS: 36415; 76705-TC; 80053; 81003; 83690; 83735; 84703; 85025; 85610; 85730; 86850; 86900; 86901; 87086; 87186; 88304-TC; 93005; 93010; 94010; 94760; 99285-25

== ENCOUNTER 2023-02-08 20:17 | Inpatient (IN) | payer OTHER ==
[2023-02-08 20:26] VITALS: BMI 28.3
[2023-02-08] MEDS ORDERED: morphine CARPU-JECT 2 MG/1 ML DISP.SYRIN IVPUSH ONE (21:09)
[2023-02-08] MEDS ORDERED: ONDANSETRON 4 MG/2 ML VIAL IVPUSH ONE (21:13)
[2023-02-08] MEDS ORDERED: morphine SULFATE 4 MG/ML VIAL ONE (21:34)
[2023-02-08] MEDS ORDERED: ONDANSETRON 4 MG/2 ML VIAL ONE (21:34)
[2023-02-08 21:40] LABS: BASO % 0.3 % (0-2.0); HEMATOCRIT 39.7 % (32.4-45.2); HEMOGLOBIN 13.5 GM/dL (10.7-15.3); LYMPH % 18.3 % (8-40); MCH 28.4 pg (25.7-33.7); MEAN CELL VOLUME 83.6 fl (80-96); MEAN PLT VOLUME 9.2 fl (7.5-11.1); MONO % 7.9 % (3.8-10.2); NEUT % 71.5 % (42.8-82.8); PLATELET COUNT 246 10^3/uL (134-434); RBC 4.75 M/mm3 (3.60-5.2); RDW 13.2 % (11.6-15.6); WHITE BLOOD COUNT 6.6 K/mm3 (4.0-10.0)
[2023-02-08 21:47] LABS: INR 1.03 (0.83-1.09)
[2023-02-08 21:50] LABS: POTASSIUM 4.4 mmol/L (3.5-5.1)
[2023-02-08 21:53] LABS: BLOOD UREA NITROGEN 7.8 mg/dL (7-18)
[2023-02-08 21:56] LABS: CREATININE 0.6 mg/dL (0.55-1.3)
[2023-02-08 21:57] LABS: TOT PROT 7.3 g/dl (6.4-8.2)
[2023-02-08 22:06] LABS: ALBUMIN 3.5 g/dl (3.4-5.0); BILIRUBIN,TOTAL 2.9 mg/dL (0.2-1)
[2023-02-08] MEDS ORDERED: LACTATED RINGERS SOLUTION 1000 ML INFUS.BAG IV ONE (22:54)
[2023-02-08 23:14] LABS: POTASSIUM 3.8 mmol/L (3.5-5.1)
[2023-02-08 23:15] LABS: CALCIUM 9.2 mg/dL (8.5-10.1)
[2023-02-08 23:16] LABS: ALBUMIN 3.4 g/dl (3.4-5.0); BLOOD UREA NITROGEN 7.6 mg/dL (7-18)
[2023-02-08 23:19] LABS: CREATININE 0.6 mg/dL (0.55-1.3)
[2023-02-08 23:20] LABS: BILIRUBIN,TOTAL 2.7 mg/dL (0.2-1); TOT PROT 7.1 g/dl (6.4-8.2)
[2023-02-09] MEDS ORDERED: SODIUM CHLORIDE 1,000 ML IV SCH (04:15)
[2023-02-09] MEDS ORDERED: KETOROLAC TROMETHAMINE 30 MG/1 ML VIAL IM PRN (04:40)
[2023-02-09] MEDS ORDERED: CALAMINE 8% TOPICAL LOTION 177 ML BOTTLE TP PRN (04:46)
[2023-02-09] MEDS ORDERED: WATER IVPB ONE ×3 (05:45→10:45)
[2023-02-09] MEDS ORDERED: ACETYLCYSTEINE IVPB ONE ×3 (05:45→10:45)
[2023-02-09] MEDS ORDERED: DEXTROSE 5% IVPB ONE ×3 (05:45→10:45)
[2023-02-09 06:00] LABS: BASO % 0.3 % (0-2.0); EOS % 3.6 % (0-4.5); HEMATOCRIT 39.6 % (32.4-45.2); LYMPH % 20.1 % (8-40); MCHC 32.9 g/dl (32.0-36.0); MEAN PLT VOLUME 9.4 fl (7.5-11.1); MONO % 7.3 % (3.8-10.2); NEUT % 68.7 % (42.8-82.8); PLATELET COUNT 236 10^3/uL (134-434); RBC 4.66 M/mm3 (3.60-5.2); RDW 12.9 % (11.6-15.6)
[2023-02-09 06:17] LABS: INR 1.1 (0.83-1.09); PROTHROMBIN TIME (PATIENT) 12.7 SEC (9.7-13.0)
[2023-02-09] MEDS ORDERED: ONDANSETRON 4 MG/2 ML VIAL IVPUSH PRN (06:49)
[2023-02-09] MEDS ORDERED: ONDANSETRON 4 MG/2 ML VIAL IVPUSH ONE (06:49)
[2023-02-09 06:58] LABS: CHLORIDE 106 mmol/L (98-107); POTASSIUM 3.7 mmol/L (3.5-5.1); SODIUM 141 mmol/L (136-145)
[2023-02-09 07:01] LABS: ALBUMIN 3.3 g/dl (3.4-5.0); ANION GAP 7 MMOL/L (8-16); CALCIUM 8.8 mg/dL (8.5-10.1); CO2 29 mmol/L (21-32); GLUCOSE,RANDOM 107 mg/dL (74-106)
[2023-02-09 07:04] LABS: CREATININE 0.5 mg/dL (0.55-1.3); SGOT/AST 892 U/L (15-37)
[2023-02-09 07:05] LABS: TOT PROT 6.8 g/dl (6.4-8.2)
[2023-02-09 07:06] LABS: BILIRUBIN,TOTAL 3.2 mg/dL (0.2-1)
[2023-02-09 07:07] LABS: ALK PHOS 259 U/L (45-117)
[2023-02-09 07:25] LABS: HIV INTERPRETATION NEGATIVE (NEGATIVE)
[2023-02-09] MEDS: LACTATED RINGERS SOLUTION 1,000 ML/1,000 ML INFUS.BAG IV SCH (09:29)
[2023-02-09] MEDS ORDERED: PIPERACILLIN/TAZOB 3.375 GM 3.375 GM in DEXTROSE 5%-WATER - 50 ML IVPB SCH ×3 (09:30→18:00)
[2023-02-09] MEDS ORDERED: POLYETHYLENE GLYCOL (HEALTHYLAX) 3350 17 GM PACKET ONE (10:27)
[2023-02-09] MEDS ORDERED: PIPERACILLIN/TAZOB 3.375 GM 3.375 GM/50 ML BAG IVPB ONE ×2 (10:28→18:19)
[2023-02-09] MEDS: POLYETHYLENE GLYCOL (HEALTHYLAX) 3350 17 GM PACKET PO SCH (10:38)
[2023-02-09] MEDS: PIPERACILLIN/TAZOB 3.375 GM 3.375 GM in DEXTROSE 5%-WATER - 50 ML IVPB SCH ×2 (10:38→18:34)
[2023-02-09 11:59] LABS: INR 1.17 (0.83-1.09); PROTHROMBIN TIME (PATIENT) 13.6 SEC (9.7-13.0)
[2023-02-09 12:32] LABS: POTASSIUM 3.5 mmol/L (3.5-5.1)
[2023-02-09 12:37] LABS: ALBUMIN 3.1 g/dl (3.4-5.0); BLOOD UREA NITROGEN 5.8 mg/dL (7-18)
[2023-02-09 12:41] LABS: CREATININE 0.5 mg/dL (0.55-1.3)
[2023-02-09 12:42] LABS: BILIRUBIN,TOTAL 3.5 mg/dL (0.2-1); TOT PROT 6.6 g/dl (6.4-8.2)
[2023-02-09 16:41] LABS: BILIRUBIN,DIRECT 2.9 mg/dL (0.0-0.2)
[2023-02-09] MEDS ORDERED: KETOROLAC TROMETHAMINE 15 MG/ML VIAL ONE (17:21)
[2023-02-10] MEDS ORDERED: PIPERACILLIN/TAZOB 3.375 GM 3.375 GM/50 ML BAG IVPB ONE (02:55)
[2023-02-10] MEDS: PIPERACILLIN/TAZOB 3.375 GM 3.375 GM in DEXTROSE 5%-WATER - 50 ML IVPB SCH (03:06)
[2023-02-10 07:02] LABS: BASO % 0.3 % (0-2.0); EOS % 1.7 % (0-4.5); HEMATOCRIT 38.3 % (32.4-45.2); HEMOGLOBIN 12.7 GM/dL (10.7-15.3); LYMPH % 13.5 % (8-40); MCH 28.7 pg (25.7-33.7); MCHC 33.2 g/dl (32.0-36.0); MEAN CELL VOLUME 86.2 fl (80-96); MEAN PLT VOLUME 9.9 fl (7.5-11.1); MONO % 3.6 % (3.8-10.2); NEUT % 80.9 % (42.8-82.8); PLATELET COUNT 235 10^3/uL (134-434); RBC 4.44 M/mm3 (3.60-5.2); RDW 13.1 % (11.6-15.6); WHITE BLOOD COUNT 9.1 K/mm3 (4.0-10.0)
[2023-02-10 07:09] LABS: INR 1.17 (0.83-1.09); PROTHROMBIN TIME (PATIENT) 13.6 SEC (9.7-13.0)
[2023-02-10 07:18] LABS: POTASSIUM 3.7 mmol/L (3.5-5.1)
[2023-02-10 07:22] LABS: ALBUMIN 3.2 g/dl (3.4-5.0); BLOOD UREA NITROGEN 12.7 mg/dL (7-18); CALCIUM 8.5 mg/dL (8.5-10.1)
[2023-02-10 07:24] LABS: ALBUMIN 3.2 g/dl (3.4-5.0)
[2023-02-10 07:25] LABS: CREATININE 0.6 mg/dL (0.55-1.3)
[2023-02-10 07:26] LABS: BILIRUBIN,TOTAL 1.5 mg/dL (0.2-1); TOT PROT 6.6 g/dl (6.4-8.2)
[2023-02-10 07:27] LABS: BILIRUBIN,DIRECT 0.9 mg/dL (0.0-0.2)
[2023-02-10 07:29] LABS: BILIRUBIN,TOTAL 1.5 mg/dL (0.2-1); TOT PROT 6.7 g/dl (6.4-8.2)
[2023-02-10] MEDS ORDERED: INDOMETHACIN 50 MG RECTAL SUPPOSITORY PR ONE (07:41)
[2023-02-10] MEDS ORDERED: POLYETHYLENE GLYCOL (HEALTHYLAX) 3350 17 GM PACKET ONE (09:27)
[2023-02-10] MEDS: POLYETHYLENE GLYCOL (HEALTHYLAX) 3350 17 GM PACKET PO SCH (09:31)
[2023-02-10] MEDS: LACTATED RINGERS SOLUTION 1,000 ML/1,000 ML INFUS.BAG IV SCH ×2 (09:31→18:49)
[2023-02-10 15:17] LABS: PHENCYCLIDINE,URINE NEGATIVE (NEGATIVE); URINE BENZODIAZEPINES NEGATIVE (NEGATIVE)
[2023-02-10 15:18] LABS: COCAINE, UR NEGATIVE (NEGATIVE); OPIATES, URI NEGATIVE (NEGATIVE); URINE BARBITURATES NEGATIVE (NEGATIVE)
[2023-02-10 15:21] LABS: URINE AMPHETAMINES NEGATIVE (NEGATIVE)
[2023-02-10 15:30] LABS: METHADONE, UR NEGATIVE (NEGATIVE)
[2023-02-11] MEDS: LACTATED RINGERS SOLUTION 1,000 ML/1,000 ML INFUS.BAG IV SCH ×2 (03:25→09:28)
[2023-02-11 08:10] LABS: POTASSIUM 3.4 mmol/L (3.5-5.1)
[2023-02-11 08:16] LABS: ALBUMIN 2.8 g/dl (3.4-5.0); BLOOD UREA NITROGEN 10.1 mg/dL (7-18); CALCIUM 7.9 mg/dL (8.5-10.1)
[2023-02-11 08:19] LABS: CREATININE 0.4 mg/dL (0.55-1.3)
[2023-02-11 08:21] LABS: BILIRUBIN,TOTAL 0.7 mg/dL (0.2-1); TOT PROT 5.4 g/dl (6.4-8.2)
[2023-02-11] MEDS: POLYETHYLENE GLYCOL (HEALTHYLAX) 3350 17 GM PACKET PO SCH (09:28)
[2023-02-11 14:52] VITALS: BP 120/67; PULSE 67; RESP 17; TEMP 97.8
[2023-02-11 16:08] LABS: ATYPICAL pANCA <1:20 titer (Neg:<1:20); C-ANCA <1:20 titer (Neg:<1:20)
== END 2023-02-11 17:37 | disposition home or self-care (01) ==
LOC: JER 20:17 → JERBED 02-09 02:34 → J8W 02-10 12:37
PROVIDERS: ADMIT Internal Medicine; ATTEND Internal Medicine
DX: K91.5 Postcholecystectomy syndrome (principal); R74.01 Elevation of levels of liver transaminase levels; K80.50 Calculus of bile duct without cholangitis or cholecystitis without obstruction; S36.119A Unspecified injury of liver, initial encounter
CPT/HCPCS: 36415; 71045-TC-FY; 74176-TC; 74181-TC; 76705-TC; 80053; 80076; 80307; 82248; 82525; 82550; 82977; 83516; 83520; 83605; 83690; 84484; 84703; 85025; 85610; 85730; 86038; 86256; 86705; 86707; 86708; 86709; 86850; 86900; 86901; 87340; 87350; 87389; 87517; 87522; 93005; 93010; 99285-25